=== PATIENT | female | born 1990 | race Caucasian/White ===

== ENCOUNTER 2024-06-01 19:54 | Emergency (ER) | payer BC ==
[~2024-06-01] VITALS: Ht 162.6 cm; Wt 65.8 kg
[2024-06-01 21:17] LABS: HEMATOCRIT 38.2 % (36.0-45.00); HEMOGLOBIN 12.8 g/dL (12.0-15.00); MEAN CELL VOLUME 88.7 fL (80.00-100.00); MEAN CORPUSCULAR HEMOGLOBIN 29.7 pg (27.00-32.0); MEAN CORPUSCULAR HGB CONC 33.5 g/dl (32.0-36.0); PLATELET COUNT 225 K/uL (150-450); RED BLOOD COUNT 4.31 M/uL (4.00-6.00); RED CELL DISTRIBUTION WIDTH 12.5 % (11.5-14.5)
[2024-06-01 21:37] LABS: URINE APPEARANCE Clear; URINE BILIRRUBIN Negative (NEGATIVE); URINE BLOOD Large; URINE COLOR Dark Yellow; URINE GLUCOSE Negative (NEGATIVE); URINE KETONE Negative (NEGATIVE); URINE LEUKOCYTE Moderate; URINE NITRATE Positive; URINE PROTEIN Trace (NEGATIVE)
[2024-06-01 21:41] LABS: URINE BACTERIA 764.7 uL (0.0-1933); URINE RBC 14.1 uL (0.0-20.8); URINE WBC 597.5 uL (0.0-23.2)
[2024-06-01] MEDS ORDERED: levoFLOXacin 750 MG TABLET PO STA (22:23)
[2024-06-01] MEDS ORDERED: KETOROLAC TROMETHAMINE 30 MG VIAL IM STA (22:24)
== END 2024-06-01 22:53 | disposition home or self-care (01) ==
LOC: ER 19:55
DX: N39.0 Urinary tract infection, site not specified (principal); Z88.0 Allergy status to penicillin